=== PATIENT | male | born 1995 | race Caucasian/White ===

== ENCOUNTER 2018-09-16 21:22 | Emergency (ER) | payer MEDICAID, OTHER ==
[~2018-09-16] VITALS: Ht 157.5 cm; Wt 45.4 kg
[2018-09-16 21:37] VITALS: BP 108/52
[2018-09-16] MEDS ORDERED: IBUP-1985 PO (22:24)
== END 2018-09-16 22:42 | disposition home or self-care (01) ==
LOC: ER 21:24
DX: R07.81 Pleurodynia (principal); F17.200 Nicotine dependence, unspecified, uncomplicated; F12.90 Cannabis use, unspecified, uncomplicated; X50.1XXA Overexertion from prolonged static or awkward postures, initial encounter; Y93.41 Activity, dancing; Y92.89 Other specified places as the place of occurrence of the external cause; Y99.9 Unspecified external cause status
CPT/HCPCS: 71045; 99283

== ENCOUNTER 2020-05-16 08:15 | Emergency (ER) | payer MEDICAID, OTHER ==
[~2020-05-16] VITALS: Ht 160 cm; Wt 50.0 kg
[~2020-05-16 08:15] MED LIST: IBUP-1985 PO
[2020-05-16 08:24] VITALS: BP 95/73
[2020-05-16] MEDS ORDERED: DEXA6TAB6 PO (10:22)
[2020-05-16] MEDS ORDERED: ALBU8HFA PO (10:22)
== END 2020-05-16 10:39 | disposition home or self-care (01) ==
LOC: ER 08:15
DX: J06.9 Acute upper respiratory infection, unspecified (principal); B97.89 Other viral agents as the cause of diseases classified elsewhere; F12.90 Cannabis use, unspecified, uncomplicated; Z20.828 Contact with and (suspected) exposure to other viral communicable diseases; Z98.890 Other specified postprocedural states
CPT/HCPCS: 36415; 71045; 93005; 99285; U0003